=== PATIENT | female | born 1990 | race Two or more races ===

== ENCOUNTER 2021-01-11 14:36 | Emergency (ER) | payer OTHER ==
[~2021-01-11] VITALS: Ht 165.1 cm; Wt 54.9 kg
== END 2021-01-11 21:48 | disposition home or self-care (01) ==
LOC: ER 14:36 → EDBD 15:57 → ER 15:57
DX: S90.572A Other superficial bite of ankle, left ankle, initial encounter (principal); L03.116 Cellulitis of left lower limb; W54.0XXA Bitten by dog, initial encounter; Y93.89 Activity, other specified; Y92.89 Other specified places as the place of occurrence of the external cause; Y99.8 Other external cause status

== ENCOUNTER 2021-01-14 13:19 | Emergency (ER) | payer OTHER ==
[~2021-01-14] VITALS: Ht 165.1 cm; Wt 54.4 kg
== END 2021-01-14 20:10 | disposition home or self-care (01) ==
LOC: ER 13:19
DX: L03.116 Cellulitis of left lower limb (principal); S91.352S Open bite, left foot, sequela; S91.0 Open wound of ankle; W54.0XXS Bitten by dog, sequela
CPT/HCPCS: 73701; Q9965

== ENCOUNTER 2022-01-28 14:36 | Outpatient (CLI) | payer OTHER | END 2022-01-28 14:50 | disposition home or self-care (01) | LOC: NST 14:36 | PROVIDERS: ATTEND Obstetrics & Gynecology Maternal & Fetal Medicine | DX: Z34.83 Encounter for supervision of other normal pregnancy, third trimester (principal) ==

== ENCOUNTER 2022-02-22 12:15 | Inpatient (IN) | payer OTHER ==
[~2022-02-22] VITALS: Ht 165.1 cm; Wt 3.6 kg
[2022-03-12] MEDS ORDERED: PRENATAL TABLE1 EAC1 PO (20:39)
[2022-03-12] MEDS ORDERED: NASAL MIST126 ML (20:40)
[2022-03-13] MEDS ORDERED: VALACYCLOVIR1000 MG (08:15)
[2022-03-13] MEDS ORDERED: METFORMIN HCL850 M1 (08:15)
[2022-03-16] MEDS ORDERED: KETO10TA2 PO (09:48)
[2022-03-16] MEDS ORDERED: OXYC1TAB9 PO (09:49)
== END 2022-03-16 12:15 | disposition home or self-care (01) | DRG 788 ==
LOC: OB/GYN 03-05 12:15 → LDR 03-12 19:54 → OB/GYN 03-13 02:34
PROVIDERS: ADMIT Obstetrics & Gynecology Maternal & Fetal Medicine; ATTEND Obstetrics & Gynecology Maternal & Fetal Medicine
PROC: 4A1HXCZ Monitoring of Products of Conception, Cardiac Rate, External Approach (ICD-10-PCS; 2022-03-12)
PROC: 10D00Z1 Extraction of Products of Conception, Low, Open Approach (ICD-10-PCS; principal; 2022-03-12 22:15)
DX: O62.0 Primary inadequate contractions (principal); O33.8 Maternal care for disproportion of other origin; O24.410 Gestational diabetes mellitus in pregnancy, diet controlled; O48.0 Post-term pregnancy; Z3A.41 41 weeks gestation of pregnancy; Z37.0 Single live birth; Z20.822 Contact with and (suspected) exposure to COVID-19

== ENCOUNTER 2022-02-25 12:57 | Outpatient (CLI) | payer OTHER | END 2022-02-25 13:52 | disposition home or self-care (01) | LOC: NST 12:57 | PROVIDERS: ATTEND Obstetrics & Gynecology Maternal & Fetal Medicine | DX: Z34.83 Encounter for supervision of other normal pregnancy, third trimester (principal) ==

== ENCOUNTER 2022-03-01 12:58 | Outpatient (CLI) | payer OTHER | END 2022-03-01 13:35 | disposition home or self-care (01) | LOC: NST 12:58 | PROVIDERS: ATTEND Obstetrics & Gynecology | DX: Z34.83 Encounter for supervision of other normal pregnancy, third trimester (principal) ==

== ENCOUNTER 2022-03-08 13:05 | Outpatient (CLI) | payer OTHER | END 2022-03-08 13:41 | disposition home or self-care (01) | LOC: NST 13:05 | PROVIDERS: ATTEND Obstetrics & Gynecology | DX: Z34.83 Encounter for supervision of other normal pregnancy, third trimester (principal) ==

== ENCOUNTER 2022-03-12 15:53 | Outpatient (CLI) | payer OTHER ==
[2022-03-12] MEDS ORDERED: PRENATAL TABLE1 EAC1 PO (20:39)
[2022-03-12] MEDS ORDERED: NASAL MIST126 ML (20:40)
[2022-03-13] MEDS ORDERED: VALACYCLOVIR1000 MG (08:15)
[2022-03-13] MEDS ORDERED: METFORMIN HCL850 M1 (08:15)
== END 2022-03-12 17:18 | disposition home or self-care (01) ==
LOC: NST 15:53
PROVIDERS: ATTEND Obstetrics & Gynecology
DX: Z34.83 Encounter for supervision of other normal pregnancy, third trimester (principal)

== ENCOUNTER 2023-09-30 08:58 | Emergency (ER) | payer OTHER ==
[~2023-09-30] VITALS: Ht 160 cm; Wt 59.0 kg
[~2023-09-30 08:58] MED LIST: KETO10TA2 PO; METFORMIN HCL850 M1; NASAL MIST126 ML; OXYC1TAB9 PO; PRENATAL TABLE1 EAC1 PO; VALACYCLOVIR1000 MG
[2023-09-30 11:46] LABS: HEMATOCRIT 39.8 % (36.0-45.00); HEMOGLOBIN 13.8 g/dL (12.0-15.00); MEAN CELL VOLUME 86.1 fL (80.00-100.00); MEAN CORPUSCULAR HEMOGLOBIN 29.9 pg (27.00-32.0); MEAN CORPUSCULAR HGB CONC 34.7 g/dl (32.0-36.0); PLATELET COUNT 253 K/uL (150-450); RED BLOOD COUNT 4.62 M/uL (4.00-6.00); RED CELL DISTRIBUTION WIDTH 12.3 % (11.5-14.5)
[2023-09-30 12:16] LABS: CALCIUM 9.1 mg/dL (8.5-10.1); CREATININE SERUM 0.81 mg/dL (0.55-1.02); GFR 80.94; POTASSIUM 3.82 mEq/L (3.5-5.1)
[2023-09-30 13:23] LABS: PH,URINE 6.5 (5.0-8.0); URINE APPEARANCE Clear; URINE BILIRRUBIN Negative (NEGATIVE); URINE BLOOD Negative; URINE COLOR Dark Yellow; URINE GLUCOSE Negative (NEGATIVE); URINE LEUKOCYTE Trace; URINE NITRATE Negative; URINE PROTEIN Trace (NEGATIVE)
[2023-09-30 13:27] LABS: URINE BACTERIA 656.4 uL (0.0-1933); URINE EPITHELIAL CELLS 23.4 uL (0.0-38.8); URINE WBC 15.7 uL (0.0-23.2)
== END 2023-09-30 17:05 | disposition home or self-care (01) ==
LOC: ER 08:58
PROVIDERS: Emergency Medicine
DX: K52.89 Other specified noninfective gastroenteritis and colitis (principal)